=== PATIENT | female | born 1965 | race Caucasian/White ===

== ENCOUNTER 2017-04-30 06:56 | Emergency (ER) | payer MEDICARE, MEDICAID ==
[~2017-04-30] VITALS: Ht 157.5 cm; Wt 76.2 kg
--- NOTE | 2017-04-30 07:05 | NUR ---
C/O "FELL ON SIDE OF DRESSER 10 DAYS AGO; WENT FOR THERAPY AND PAIN IS WORSE IN RIGHT HIP". NAD NOTED. PT AAO X4, AMB WITH STEADY GAIT. RR EVEN AND UNLABORED. VSS. PENDING MD MORAN.
[2017-04-30 07:06] VITALS: BP 149/98
--- NOTE | 2017-04-30 07:54 | NUR ---
PATIENT REFUSED TO TAKE NORCO AND ZOFRAN AND REFUSES AN ALTERNATIVE, DR LU AWARE. PT ACCEPTED TO TAKE PREDNISONE. PRESCRIPTIONS GIVEN. NO OTHER COMPLAINTS.
== END 2017-04-30 07:59 | disposition home or self-care (01) ==
LOC: ER 06:58
DX: S00.93XA Contusion of unspecified part of head, initial encounter (principal); M54.31 Sciatica, right side; M19.90 Unspecified osteoarthritis, unspecified site; Z88.1 Allergy status to other antibiotic agents; Z88.0 Allergy status to penicillin; W22.8XXA Striking against or struck by other objects, initial encounter; Y93.89 Activity, other specified; Y92.89 Other specified places as the place of occurrence of the external cause; Y99.8 Other external cause status
CPT/HCPCS: A4606; Q0162; Z7610

== ENCOUNTER 2017-05-06 08:56 | Outpatient (CLI) | payer MEDICARE, MEDICAID | END 2017-05-06 23:59 | disposition home or self-care (01) | LOC: MRI 08:56 | PROVIDERS: ATTEND Student in an Organized Health Care Education/Training Program | DX: S70.01XA Contusion of right hip, initial encounter (principal); M16.11 Unilateral primary osteoarthritis, right hip; M85.68 Other cyst of bone, other site; X58.XXXA Exposure to other specified factors, initial encounter; Y93.89 Activity, other specified; Y92.89 Other specified places as the place of occurrence of the external cause; Y99.8 Other external cause status | CPT/HCPCS: 73721-TC ==

== ENCOUNTER 2017-12-22 09:17 | Outpatient (CLI) | payer MEDICARE, OTHER | END 2017-12-22 23:59 | disposition home or self-care (01) | LOC: MRI 09:17 | PROVIDERS: ATTEND Specialist | DX: M75.102 Unspecified rotator cuff tear or rupture of left shoulder, not specified as traumatic (principal); M19.012 Primary osteoarthritis, left shoulder; M75.52 Bursitis of left shoulder | CPT/HCPCS: 73221-TC ==

== ENCOUNTER 2018-01-31 07:57 | Emergency (ER) | payer MEDICARE, OTHER ==
[~2018-01-31] VITALS: Ht 157.5 cm; Wt 74.8 kg
[2018-01-31 08:02] VITALS: BP 154/95
== END 2018-01-31 08:27 | disposition home or self-care (01) ==
LOC: ER 08:00
DX: L03.113 Cellulitis of right upper limb (principal); F10.10 Alcohol abuse, uncomplicated; Y90.9 Presence of alcohol in blood, level not specified; Z98.890 Other specified postprocedural states; Z88.0 Allergy status to penicillin; Z88.1 Allergy status to other antibiotic agents; Z88.8 Allergy status to other drugs, medicaments and biological substances; W55.01XA Bitten by cat, initial encounter; Y93.89 Activity, other specified; Y92.89 Other specified places as the place of occurrence of the external cause; Y99.8 Other external cause status
CPT/HCPCS: 99283; A4606; Z7610

== ENCOUNTER 2018-03-17 06:25 | Emergency (ER) | payer MEDICARE, OTHER ==
[~2018-03-17] VITALS: Ht 157.5 cm; Wt 78.5 kg
--- NOTE | 2018-03-17 06:25 | NUR ---
bib self; "right ear/ jaw / forhead burning" ALERT AND ORIENTED. VSS NO ACUTE DISTRESS AT THIS TIME. SKIN IS WARM AND DRY. WILL CONTINUE TO MONITOR FOR ANY CHANGES DURING THE SHIFT.
--- NOTE | 2018-03-17 06:26 | NUR ---
ER MD PRETTY AT BEDSIDE
[2018-03-17 06:50] VITALS: BP 159/91
== END 2018-03-17 07:08 | disposition home or self-care (01) ==
LOC: ER 06:27
DX: M27.51 Perforation of root canal space due to endodontic treatment (principal); K04.7 Periapical abscess without sinus; K02.9 Dental caries, unspecified; F10.10 Alcohol abuse, uncomplicated; Y90.9 Presence of alcohol in blood, level not specified; J32.9 Chronic sinusitis, unspecified; Z88.0 Allergy status to penicillin; Z88.1 Allergy status to other antibiotic agents; Z88.8 Allergy status to other drugs, medicaments and biological substances; Z98.890 Other specified postprocedural states
CPT/HCPCS: 99283; A4606; Z7610

== ENCOUNTER 2018-10-10 07:11 | Emergency (ER) | payer MEDICARE, OTHER ==
[~2018-10-10] VITALS: Ht 162.6 cm; Wt 79.4 kg
[2018-10-10 07:20] VITALS: BP 171/94
[2018-10-10] MEDS ORDERED: CLINDAMYCIN HCL 150 MG CAPSULE PO ONE ×2 (07:30→07:40)
== END 2018-10-10 07:48 | disposition home or self-care (01) ==
LOC: ER 07:21
DX: K04.6 Periapical abscess with sinus (principal); K02.9 Dental caries, unspecified; F10.10 Alcohol abuse, uncomplicated; Y90.9 Presence of alcohol in blood, level not specified; Z98.890 Other specified postprocedural states; Z88.6 Allergy status to analgesic agent; Z88.0 Allergy status to penicillin; Z88.1 Allergy status to other antibiotic agents

== ENCOUNTER 2018-12-05 09:15 | Emergency (ER) | payer MEDICARE, OTHER ==
[~2018-12-05] VITALS: Ht 157.5 cm; Wt 79.8 kg
[2018-12-05 09:27] VITALS: BP 116/68
--- NOTE | 2018-12-05 09:55 | NUR ---
Patient discharged to home in stable condition. Written and verbal after care instructions given. Patient verbalizes understanding of instruction.
== END 2018-12-05 09:55 | disposition home or self-care (01) ==
LOC: ER 09:17
DX: Z48.01 Encounter for change or removal of surgical wound dressing (principal); F10.10 Alcohol abuse, uncomplicated; Y90.9 Presence of alcohol in blood, level not specified; Z98.890 Other specified postprocedural states; Z88.6 Allergy status to analgesic agent; Z88.0 Allergy status to penicillin; Z88.1 Allergy status to other antibiotic agents
CPT/HCPCS: Z7502

== ENCOUNTER 2019-08-13 08:57 | Emergency (ER) | payer MEDICARE, OTHER ==
[~2019-08-13] VITALS: Ht 157.5 cm; Wt 83.9 kg
--- NOTE | 2019-08-13 09:02 | NUR ---
CAME IN FOR "SHARP/SHOOTING PAIN BEHIND LEFT KNEE WHILE WALKING LAST FRIDAY" TO ER BED 10, HOOKED TO MONITOR, PROVIDED W WARM BLANKET, AWAITING MD MORAN.
--- NOTE | 2019-08-13 10:04 | NUR ---
DR TRIPLETT AT BEDSIDE
--- NOTE | 2019-08-13 10:21 | NUR ---
TEXTED DR. LYNCH FOR MRI APPROVAL.
[2019-08-13] MEDS ORDERED: ACETAMINOPHEN W/ CODEINE#3 1 EA TABLET PO ONE (10:30)
[2019-08-13] MEDS ORDERED: ACETAMINOPHEN W/ CODEINE#3 1 EA TABLET ONE (10:34)
--- NOTE | 2019-08-13 12:05 | NUR ---
RADIOLOGY CALLED AND SAID THAT GEM SETTER WILL NOT BE HERE UNTIL 1900. NO OTHER TECH WILL BE AVAILABLE UNTIL THEN.
--- NOTE | 2019-08-13 12:15 | NUR ---
AL FROM RADIOLOGY AT BEDSIDE TO INFORM HER AND AXPLAIN TO HER THAT THE MRI WILL BE DELAYED BETWEEN 5-7 PM, DR TRIPLETT AWARE
--- NOTE | 2019-08-13 13:20 | NUR ---
patient upset about MRI being delayed but decided to stay and wait for the Software Engineering Specialist, aroung 5 pm to 7 pm
--- NOTE | 2019-08-13 15:22 | NUR ---
PATIENT IN BED AWAKE, WATCHING TELEVISION, HOOKED TO MONITOR. WILL MONITIOR ACCORDINGLY. KEPT SAFE AND COMFORTABLE
[2019-08-13 16:21] VITALS: BP 146/99
--- NOTE | 2019-08-13 16:30 | NUR ---
WHEELED OUT VIA WHEELCHAIR FOR MRI
== END 2019-08-13 18:05 | disposition left against medical advice (07) ==
LOC: ER 09:00
DX: M25.562 Pain in left knee (principal); F10.10 Alcohol abuse, uncomplicated; F17.200 Nicotine dependence, unspecified, uncomplicated; R00.0 Tachycardia, unspecified; Y90.9 Presence of alcohol in blood, level not specified; Z88.0 Allergy status to penicillin; Z98.890 Other specified postprocedural states; Z88.1 Allergy status to other antibiotic agents
CPT/HCPCS: 73721-TC

== ENCOUNTER 2020-03-03 06:22 | Emergency (ER) | payer MEDICARE, OTHER ==
[~2020-03-03] VITALS: Ht 157.5 cm; Wt 79.8 kg
[2020-03-03 06:33] VITALS: BP 163/109
== END 2020-03-03 06:38 | disposition home or self-care (01) ==
LOC: ER 06:27
DX: K02.9 Dental caries, unspecified (principal); M19.90 Unspecified osteoarthritis, unspecified site; Z98.890 Other specified postprocedural states; Z88.0 Allergy status to penicillin; Z88.1 Allergy status to other antibiotic agents; Z88.6 Allergy status to analgesic agent

== ENCOUNTER 2021-02-05 06:57 | Emergency (ER) | payer MEDICARE, OTHER ==
[~2021-02-05] VITALS: Ht 157.5 cm; Wt 84.4 kg
[2021-02-05 07:13] VITALS: BP 180/121
--- NOTE | 2021-02-05 07:15 | NUR ---
The patient bibs for c/o sinus pain and headache since friday. Rates headache 10/11. Respiration regular and unlabored. Will continue to monitor the patient.
[2021-02-05] MEDS ORDERED: CLIN150C16 PO (07:18)
--- NOTE | 2021-02-05 07:23 | NUR ---
Patient discharged to home in stable condition. Written and verbal after care instructions given. Patient verbalizes understanding of instruction.
== END 2021-02-05 07:24 | disposition home or self-care (01) ==
LOC: ER 06:57
DX: K04.7 Periapical abscess without sinus (principal); K02.7 Dental root caries; M19.90 Unspecified osteoarthritis, unspecified site; Z98.890 Other specified postprocedural states; Z88.0 Allergy status to penicillin; Z88.1 Allergy status to other antibiotic agents; Z91.048 Other nonmedicinal substance allergy status

== ENCOUNTER 2021-10-04 08:03 | Emergency (ER) | payer MEDICARE, OTHER ==
[~2021-10-04] VITALS: Ht 157.5 cm; Wt 77.1 kg
[~2021-10-04 08:03] MED LIST: CLIN150C16 PO
[2021-10-04 08:13] VITALS: BP 165/102
[2021-10-04] MEDS ORDERED: CLIN300C12 PO (08:34)
== END 2021-10-04 08:40 | disposition home or self-care (01) ==
LOC: ER 08:33
DX: K02.9 Dental caries, unspecified (principal); M19.90 Unspecified osteoarthritis, unspecified site; Z98.890 Other specified postprocedural states; Z88.8 Allergy status to other drugs, medicaments and biological substances; Z88.0 Allergy status to penicillin; Z88.1 Allergy status to other antibiotic agents

== ENCOUNTER 2022-01-04 09:15 | Emergency (ER) | payer MEDICARE, OTHER ==
[~2022-01-04] VITALS: Ht 162.6 cm; Wt 70.3 kg
[~2022-01-04 09:15] MED LIST changes: +CLIN300C12 PO
[2022-01-04] MEDS ORDERED: CLIN300C12 PO (09:42)
--- NOTE | 2022-01-04 09:45 | NUR ---
Patient discharged to home in stable condition. Written and verbal after care instructions given. Patient verbalizes understanding of instruction.
[2022-01-04 09:48] VITALS: BP 145/70
== END 2022-01-04 09:48 | disposition home or self-care (01) ==
LOC: ER 09:25
DX: J32.9 Chronic sinusitis, unspecified (principal); M19.90 Unspecified osteoarthritis, unspecified site; Z88.8 Allergy status to other drugs, medicaments and biological substances; Z79.899 Other long term (current) drug therapy

== ENCOUNTER 2022-07-24 06:42 | Emergency (ER) | payer MEDICARE, OTHER ==
[~2022-07-24] VITALS: Ht 157.5 cm; Wt 81.6 kg
--- NOTE | 2022-07-24 06:55 | NUR ---
BIBSELF C/O LAC ON BACK OF HEAD S/P FELL BACKWARDS.HX OF VERTIGO. -LOC. PATIENT IS AAOX4. ABLE TO MAKE NEEDS KNOWN. PLACED COMFORTABLY IN BED. VITALS CHECKED.
--- NOTE | 2022-07-24 07:03 | NUR ---
SEEN BY DR HAWK AT BEDSIDE
--- NOTE | 2022-07-24 07:07 | NUR ---
REPORT GIVEN TO DEBORAH SMITH
--- NOTE | 2022-07-24 07:10 | NUR ---
Patient discharged to home in stable condition. Written and verbal after care instructions given. Patient verbalizes understanding of instruction.
[2022-07-24] MEDS ORDERED: IBUPROFEN 400 MG TABLET ONE (07:15)
[2022-07-24] MEDS: IBUPROFEN 400 MG TABLET PO ONE (07:18)
[2022-07-24 08:13] VITALS: BP 135/79
== END 2022-07-24 08:14 | disposition home or self-care (01) ==
LOC: ER 06:43
DX: S01.01XA Laceration without foreign body of scalp, initial encounter (principal); M19.90 Unspecified osteoarthritis, unspecified site; Z88.0 Allergy status to penicillin; Z88.4 Allergy status to anesthetic agent; Z88.8 Allergy status to other drugs, medicaments and biological substances; W18.39XA Other fall on same level, initial encounter; Y93.89 Activity, other specified; Y92.89 Other specified places as the place of occurrence of the external cause; Y99.8 Other external cause status

== ENCOUNTER 2022-07-31 08:14 | Emergency (ER) | payer MEDICARE, OTHER ==
[~2022-07-31] VITALS: Ht 157.5 cm; Wt 83.9 kg
[2022-07-31 08:28] VITALS: BP 155/94
--- NOTE | 2022-07-31 08:43 | NUR ---
lakeisha taken out. 2 lakeisha. tolerated procedure well. d/c home in stable condition.
== END 2022-07-31 08:55 | disposition home or self-care (01) ==
LOC: ER 08:30
DX: S01.01XD Laceration without foreign body of scalp, subsequent encounter (principal); M19.90 Unspecified osteoarthritis, unspecified site; Z88.0 Allergy status to penicillin; Z88.1 Allergy status to other antibiotic agents; Z88.4 Allergy status to anesthetic agent; X58.XXXD Exposure to other specified factors, subsequent encounter

== ENCOUNTER 2023-06-11 04:43 | Emergency (ER) | payer MEDICARE, OTHER ==
[~2023-06-11] VITALS: Ht 157.5 cm; Wt 81.2 kg
[2023-06-11 06:03] VITALS: BP 152/89; TEMP 98.2; O2SAT 98
[2023-06-11] MEDS ORDERED: KETOROLAC TROMETHAMINE INJ 30 MG/ML VIAL ONE (06:22)
[2023-06-11] MEDS ORDERED: IV NS 0.9% 1,000 ML BAG IV ONE (06:30)
[2023-06-11] MEDS ORDERED: KETOROLAC TROMETHAMINE INJ 30 MG/ML VIAL IV ONE (06:30)
[2023-06-11] MEDS ORDERED: ONDA4TAB5 PO (06:37)
[2023-06-11] MEDS ORDERED: IBUP-1955 PO (06:37)
[2023-06-11 06:39] LABS: APPEARANCE,URINE CLEAR (CLEAR); BILIRUBIN,URINE NEGATIVE (NEGATIVE); BLOOD, URINE TRACE-INTA Ery/uL (NEGATIVE); COLOR,URINE YELLOW (YELLOW); KETONES,URINE 1+ mg/dL (NEGATIVE); LEUKOCYTE ESTERASE ,URINE 1+ (NEGATIVE); NITRITE, URINE NEGATIVE (NEGATIVE); PROTEIN,URINE NEGATIVE (NEGATIVE); UGLUCOSE NEGATIVE (NEGATIVE); UROBILINOGEN,URINE 0.2 EU/dL (0.2)
[2023-06-11 07:11] LABS: ADD URINE CULTURE YES; BACTERIA,URINE None seen /HPF (None Seen)
[2023-06-11] MEDS ORDERED: NITR100C6 PO (07:42)
== END 2023-06-11 06:47 | disposition left against medical advice (07) ==
LOC: ER 04:50
DX: N39.0 Urinary tract infection, site not specified (principal); J11.1 Influenza due to unidentified influenza virus with other respiratory manifestations; R07.81 Pleurodynia; M19.90 Unspecified osteoarthritis, unspecified site; G89.29 Other chronic pain; Z88.0 Allergy status to penicillin; Z88.2 Allergy status to sulfonamides; Z88.8 Allergy status to other drugs, medicaments and biological substances
CPT/HCPCS: 81001; 87086-TC; J1885

== ENCOUNTER 2024-03-17 10:01 | Emergency (ER) | payer MEDICARE, OTHER ==
[~2024-03-17] VITALS: Ht 157.5 cm; Wt 83.9 kg
[~2024-03-17 10:01] MED LIST changes: +IBUP-1955 PO; +NITR100C6 PO; +ONDA4TAB5 PO
[2024-03-17 10:25] VITALS: BP 152/93; TEMP 98.4
[2024-03-17] MEDS ORDERED: IBUPROFEN 600 MG TABLET ONE (11:01)
[2024-03-17] MEDS: IBUPROFEN 600 MG TABLET PO ONE (11:04)
[2024-03-17 12:38] VITALS: O2SAT 100
== END 2024-03-17 12:39 | disposition home or self-care (01) ==
LOC: ER 10:09
DX: M25.572 Pain in left ankle and joints of left foot (principal); Z98.890 Other specified postprocedural states; Z79.1 Long term (current) use of non-steroidal anti-inflammatories (NSAID); Z79.899 Other long term (current) drug therapy; Z88.0 Allergy status to penicillin; Z88.1 Allergy status to other antibiotic agents; Z88.2 Allergy status to sulfonamides
CPT/HCPCS: 73610-TC; 73630-TC

== ENCOUNTER → 2024-04-15 | Emergency (ER) | payer MEDICARE, OTHER ==
[~2024-04-15] VITALS: Ht 157.5 cm; Wt 81.2 kg
[~2024-04-15] MED LIST changes: +DICY10CA37 PO; +IBUP-1953 PO; +ONDANSETRON 4 MG TAB.RAPDIS ONE
[2024-04-15] MEDS: IV NS 0.9% 1,000 ML BAG IV ONE (07:00)
[2024-04-15] MEDS: ONDANSETRON HCL/PF 4 MG/2 ML VIAL IVP ONE (07:00)
[2024-04-15] MEDS: KETOROLAC TROMETHAMINE 15 MG/ML VIAL IV ONE (07:00)
[2024-04-15 07:09] LABS: BASOPHILS % (AUTO) 0.4 % (0.0-2.0); EOSINOPHILS % (AUTO) 0.7 % (0.0-6.0); HEMATOCRIT 43 % (33-45); HEMOGLOBIN 14.2 g/dL (11.5-14.8); LYMPHOCYTES # (AUTO) 1.5 K/uL (0.8-4.8); LYMPHOCYTES % (AUTO) 21.3 % (20.0-44.0); MEAN CORPUSCULAR HEMOGLOBIN 31 PG (26.0-33.0); MEAN CORPUSCULAR HGB CONC 33 g/dl (31.0-36.0); MEAN CORPUSCULAR VOLUME 95 fL (82-100); MONOCYTES # (AUTO) 0.6 K/uL (0.1-1.30); MONOCYTES % (AUTO) 8.4 % (2.0-12.0); NEUTROPHILS # (AUTO) 4.8 K/uL (1.8-8.9); NEUTROPHILS % (AUTO) 69.2 % (43.0-81.0); PLATELET COUNT (AUTO) 275 K/uL (150-450); RED BLOOD CELL COUNT(AUTO) 4.52 MIL/uL (4.0-5.2); RED CELL DISTRIBUTION WIDTH 13.5 % (11.5-15.0); WHITE BLOOD COUNT (AUTO) 6.9 K/uL (4.3-11.0)
[2024-04-15 07:10] LABS: APPEARANCE,URINE SLIGHTLY CLOUDY (CLEAR); BILIRUBIN,URINE 2+ (NEGATIVE); BLOOD, URINE 1+ Ery/uL (NEGATIVE); COLOR,URINE DARK YELLOW (YELLOW); KETONES,URINE TRACE mg/dL (NEGATIVE); LEUKOCYTE ESTERASE ,URINE NEGATIVE (NEGATIVE); NITRITE, URINE NEGATIVE (NEGATIVE); PH,URINE 5.5 (5.0-8.0); PROTEIN,URINE TRACE mg/dl (NEGATIVE); UGLUCOSE NEGATIVE (NEGATIVE)
[2024-04-15 07:31] LABS: BACTERIA,URINE Few /HPF (None Seen); SQUAMOUS EPITHELIAL CELL,UR Many /HPF (None Seen)
[2024-04-15 07:33] LABS: BILIRUBIN,DIRECT 0.1 mg/dL (0.0-0.2); BILIRUBIN,TOTAL 0.5 mg/dL (0.2-1.0); CALCIUM, SERUM 9.3 mg/dL (8.5-10.1); CREATININE 0.7 mg/dL (0.6-1.3); TOTAL PROTEIN, SERUM 7.8 g/dL (6.4-8.2)
[2024-04-15 07:33] LABS: WBC,URINE 0-2 /HPF (0-3)
[2024-04-15 07:35] LABS: ADD URINE CULTURE YES; YEAST,URINE Moderate /HPF (None Seen)
[2024-04-15] MEDS: ONDANSETRON 4 MG TAB.RAPDIS PO ONE (08:22)
[2024-04-15 08:26] VITALS: BP 150/98; TEMP 98.2; O2SAT 99
== END | disposition home or self-care (01) ==
LOC: ER 06:31
DX: G89.29 Other chronic pain (principal); M54.59 Other low back pain; M25.552 Pain in left hip; R10.84 Generalized abdominal pain; R14.0 Abdominal distension (gaseous); R11.0 Nausea; I10 Essential (primary) hypertension; M19.90 Unspecified osteoarthritis, unspecified site; Z87.440 Personal history of urinary (tract) infections; Z88.0 Allergy status to penicillin; Z88.2 Allergy status to sulfonamides; Z88.8 Allergy status to other drugs, medicaments and biological substances
CPT/HCPCS: 99284; 74176; 85025; 80048; 83690; 80076; 81001; 36415; Q0162